=== PATIENT | male | born 2000 | race Caucasian/White ===

== ENCOUNTER 2024-10-19 21:46 | Observation (INO) ==
[2024-10-19] MEDS: ONDANSETRON INJ 2 MG/ML 2 ML VIAL IV STA ×2 (22:13→23:23)
[2024-10-19] MEDS: ACETAMINOPHEN 1,000 MG/100 ML VIAL IV STA (22:13)
[2024-10-19] MEDS: SODIUM CHLORIDE 0.9% 1,000 ML IV ONE ×2 (22:13→23:25)
[2024-10-19] MEDS: KETOROLAC TROMETHAMINE 15 MG/ML VIAL IV STA ×2 (22:13→23:23)
[2024-10-19 22:14] LABS: Basophils # (auto) 0.03 K/uL (0.00-0.20); Basophils % (auto) 0.4 %; Eosinophils # (auto) 0.08 K/uL (0.00-0.50); Eosinophils % (auto) 1.1 %; Hematocrit (blood only) 44.6 % (42.0-52.0); Hemoglobin 15.7 g/dl (14.0-18.0); Immature Granulocytes # (auto) 0.02 K/uL (0.01-0.20); Immature Granulocytes % (auto) 0.3 %; Lymphocytes # (auto) 1.64 K/uL (1.20-3.40); Mean Corpuscular Hgb Conc 35.2 g/dL (32.0-36.0); Mean Corpuscular Volume 85.3 fL (80.0-100.0); Mean Platelet Volume 10.3 fL (9.4-12.4); Monocytes # (auto) 0.65 K/uL (0.11-0.59); Monocytes % (auto) 8.7 %; Neutrophils # (auto) 5.03 K/uL (1.40-6.50); Neutrophils % (auto) 67.5 %; Platelet Count 265 K/uL (130-400); RDW Coefficient of Variation 12.7 % (11.5-14.5); RDW Standard Deviation 39.7 fL (36.4-46.3); Red Blood Count 5.23 M/uL (4.70-6.10); White Blood Count 7.45 K/ul (4.8-10.8)
[2024-10-19 22:32] LABS: Albumin Globulin Ratio 2.1 (0.9-2); Albumin Level 5.3 gm/dl (3.4-5.0); BUN Creatinine Ratio 11.6 (10-20); Bilirubin,Total 0.5 mg/dl (0.2-1.0); Calcium 10.3 mg/dl (8.6-10.3); Creatinine Clr Calc Pharmacy 95.7 ml/min; Globulin 2.5 gm/dl (2.5-4.0); Potassium 3.4 mmol/L (3.5-5.1); Total Protein 7.8 gm/dl (6.0-8.3)
[2024-10-19] MEDS: MoRPHine SULFATE 4 MG/ML 1 ML CARP\\VIAL IV STA (22:36)
[2024-10-19] MEDS: OPTIRAY 320 100ml IV ONE (22:47)
--- NOTE | 2024-10-19 23:22 | Emergency Department Note ---
Impression & Plan Ureterolithiasis, Hydronephrosis due to obstruction of ureter, Acute right flank pain ED Provider Note NAME: GIOVANNY MONTIEL AGE: 24 SEX: M : 2000 ARRIVES VIA: Ambulance INFORMANT: Patient ED PROVIDER(S): Zan Collado MD CHIEF COMPLAINT: Right flank pain, kidney stone. PLAN: Disposition: Admit MEDICAL DECISION MAKING: The patient is a pleasant 24-year-old gentleman who presents to the emergency department for evaluation of worsening right flank pain in setting of being seen in this emergency department 10/17 and 10/18 where he was ultimately diagnosed with a obstructing right ureteral stone. Patient CT demonstrated a 4 mm right proximal renal calculus with associated hydronephrosis. Urine without evidence of infection. Patient reports increasing severe pain with associated nausea. He denies fevers, cough congestion, chest pain or shortness of breath. On evaluation the patient is uncomfortable but no acute distress, afebrile stable vital signs. He appears clinically dry. He has mild right flank and right lower abdominal discomfort without discrete tenderness. WBC, H/H and platelets within normal limits. Chemistry without metabolic acidosis. LFTs unremarkable. Lipase is normal. UA without evidence of infection. CT of the abdomen pelvis was performed and demonstrates migration of patient's previous renal stone now at the UVJ with associated hydronephrosis. Patient was treated with IV fluid ration, IV APAP, Toradol as well as IV morphine with repeat dosing and additional IV Dilaudid due to intractable pain. Given the persistence of the patient's symptoms he does agree with plan for admission for further management. Case was discussed with [facility] Arcos hospitalist, who will evaluate the patient for admission. Triage Nursing notes reviewed and agree them. Prior/external medical records reviewed Vital Signs: reviewed Differential diagnosis: Renal colic, UTI, appendicitis, diverticulitis, mesenteric ischemia, aortic pathology, infections, inflammatory bowel disease, PUD, biliary pathology, as well as other pathologies. ER treatment provided: See below. Diagnostics interpreted by me: Cardiac Monitoring: An order for continuous cardiac monitoring was placed and demonstrated normal sinus rhythm, 89 bpm, no ectopy. Laboratory studies: See below Imaging studies: See below Consultation(s): [facility] Arcos hospitalist. HPI: Per MDM. ROS: See above HPI for pertinent positives & negatives. A total of 10 systems reviewed and were otherwise negative. VITALS:See Below PHYSICAL EXAMINATION: GENERAL: Awake, alert, uncomfortable-appearing, in no distress HENT: Normocephalic, atraumatic. Oropharynx with dry mucous membranes and otherwise unremarkable. EYES: Normal conjunctiva. Sclera non-icteric. NECK: Supple. No nuchal rigidity. FROM. No JVD. RESPIRATORY: Clear to auscultation. CARDIAC: Regular rate, normal rhythm. Extremities warm and well perfused. Pulses equal. ABDOMEN: Soft, non-distended. Mild right flank and right lower quadrant discomfort without discrete tenderness to palpation. No rebound or guarding. MUSCULOSKELETAL: Chest examination reveals no tenderness. The back is symmetrical on inspection without obvious abnormality. There is no CVA tenderness to palpation. No joint edema. LOWER EXTREMITIES: Calves are equal size bilaterally and non-tender. No edema. No discoloration. NEURO: Normal sensorium. No sensory or motor deficits noted. SKIN: No rash or jaundice noted. Zan Collado MD Past Med/Surg History Problem List (Updated 10/21/24 @ 01:12 by Zan Collado MD) Acute right flank pain (Acute) Hydronephrosis due to obstruction of ureter (Acute) Ureterolithiasis (Acute) Right ureteral calculus (Acute) Hematuria (Acute) Abdominal pain, acute, right lower quadrant (Acute) Hematuria (Acute) Abdominal pain (Acute) History of tinnitus (Chronic) Environmental and seasonal allergies (Chronic) RBBB (Chronic) Medical History Buckle fracture of radius Marfans syndrome Surgical History No history of previous surgery Family History Grandmother (Paternal) MVP (mitral valve prolapse) Skin cancer Father TBI (traumatic brain injury) Misuse of medication Mother No problems noted. Denies family history of Ovarian cancer Prostate cancer Myocardial infarction Breast cancer Colorectal cancer Social History Smoking Status: Never smoker Second Hand Exposure: No; Do You Dip or Chew Tobacco: No; Hx Alcohol Use: No Hx Substance Use: No Preferred Language: Maldivian Communication Ability: Effective Visual Impairment: No Limitations Hearing Ability: Normal Grocery Associate Required: No Beliefs That Will Affect Care: None marital status: single Current Living Situation: Parent and Family Current Living Situation Comment: mom and 2 brothers and 1 sister current occupational status: employed current occupation: [employer] How many Children do You have: 0 Feels Safe at Home: Yes Childhood Exposure to Second-Hand Smoke: No Diet: regular caffeine: No during the past year weight has: remained stable Dental Care, Regularly: Yes Physical Activity Frequency: Daily Physical Activity Frequency Comment: walks dog, does PT training Seatbelt Use: always Sunscreen Use: Yes Assistive Devices: None Allergies Allergies Allergy/AdvReac Type Severity Reaction Status Date / Time pollen extracts Allergy Mild STUFFY NOSE Verified 10/19/24 22:13 Home Meds Home Medications Medication Instructions Recorded Confirmed loratadine 10 mg tablet (Claritin) 10 mg PO DAILY PRN Nasal Congestion 11/14/18 10/19/24 cyanocobalamin (vitamin B-12) 1,000 mcg PO DAILY 04/06/21 10/19/24 1,000 mcg tablet (Vitamin B-12) Previous Rx's Medication Instructions Recorded ondansetron 4 mg disintegrating 4 mg PO Q8H PRN nausea and 10/18/24 tablet vomiting #10 tabs tamsulosin 0.4 mg capsule (Flomax) 0.4 mg PO DAILY #14 caps 10/20/24 tramadol 50 mg tablet 50 mg PO Q8H PRN pain #5 tabs 10/20/24 Results & Data (ED) Vital Signs Vital Signs - 24 hr 10/19/24 21:55 10/19/24 21:55 10/19/24 21:56 Temperature 36.5 C Temperature Source Oral Pulse Rate 89 93 H Pulse Rate [Right Finger] 89 Pulse Rhythm Regular Pulse Rhythm [Right Finger] Regular Pulse Strength Normal Pulse Strength [Right Finger] Normal Respiratory Rate 21 21 Respiratory Effort / Characteristics Non-Labored Non-Labored Respiratory Depth Normal Normal Respiratory Pattern Regular Regular Blood Pressure 136/88 Blood Pressure [Left Arm] 136/88 Blood Pressure Mean 104 Blood Pressure Mean [Left Arm] 104 Blood Pressure Position Lying Blood Pressure Position [Left Arm] Lying Pulse Oximetry 100 100 Oxygen Delivery Method Room Air Room Air Sepsis Recent Fever Within 48 Hours No Sepsis New/Unexplained Change in Mental Status N/A Sepsis Action Taken by Nursing No Action Required 10/19/24 22:28 Temperature Temperature Source Pulse Rate Pulse Rate [Right Finger] Pulse Rhythm Pulse Rhythm [Right Finger] Pulse Strength Pulse Strength [Right Finger] Respiratory Rate Respiratory Effort / Characteristics Respiratory Depth Respiratory Pattern Blood Pressure Blood Pressure [Left Arm] Blood Pressure Mean Blood Pressure Mean [Left Arm] Blood Pressure Position Blood Pressure Position [Left Arm] Pulse Oximetry 100 Oxygen Delivery Method Room Air Sepsis Recent Fever Within 48 Hours Sepsis New/Unexplained Change in Mental Status Sepsis Action Taken by Nursing Laboratory Data Attestation: I reviewed the patient's lab results. 10/20/24 05:53 10/20/24 05:53 Lab Results 10/19/24 10/20/24 Range/Units 21:58 00:02 WBC 7.45 (4.8-10.8) K/ul RBC 5.23 (4.70-6.10) M/uL Hgb 15.7 (14.0-18.0) g/dl Hct 44.6 (42.0-52.0) % MCV 85.3 (80.0-100.0) fL MCH 30.0 (25.0-34.0) pg MCHC 35.2 (32.0-36.0) g/dL RDW Std Deviation 39.7 (36.4-46.3) fL RDW Coeff of Sharon 12.7 (11.5-14.5) % Plt Count 265 (130-400) K/uL MPV 10.3 (9.4-12.4) fL Immature Gran % (Auto) 0.3 % Neut % (Auto) 67.5 % Lymph % (Auto) 22.0 % Amador % (Auto) 8.7 % Eos % (Auto) 1.1 % Baso % (Auto) 0.4 % Neut # (Auto) 5.03 (1.40-6.50) K/uL Lymph # (Auto) 1.64 (1.20-3.40) K/uL Amador # (Auto) 0.65 H (0.11-0.59) K/uL Eos # (Auto) 0.08 (0.00-0.50) K/uL Baso # (Auto) 0.03 (0.00-0.20) K/uL Immature Gran # (Auto) 0.02 (0.01-0.20) K/uL Sodium 139 (136-145) mmol/L Potassium 3.4 L (3.5-5.1) mmol/L Chloride 104 (98-107) mmol/L Carbon Dioxide 21 (21-32) mmol/L Anion Gap 14 H (3-11) BUN 15 (6-23) mg/dl Creatinine 1.29 (0.6-1.4) mg/dl Est Cr Clr Drug Dosing 95.7 ml/min eGFR 80.40 BUN/Creatinine Ratio 11.6 (10-20) Glucose 98 (70-99(Fasting)) mg/dl Calcium 10.3 (8.6-10.3) mg/dl Total Bilirubin 0.5 (0.2-1.0) mg/dl AST 23 (13-39) U/L ALT 35 (7-52) U/L Alkaline Phosphatase 94 (34-104) U/L Total Protein 7.8 (6.0-8.3) gm/dl Albumin 5.3 H (3.4-5.0) gm/dl Globulin 2.5 (2.5-4.0) gm/dl Albumin/Globulin Ratio 2.1 H (0.9-2) Lipase 22 (11-82) U/L Urine Color Yellow Urine Appearance Clear (Clear) Urine pH 8.5 H (4.5-7.5) Ur Specific [place] 1.023 (1.000-1.030) Urine Protein Negative (Negative) Urine Glucose (UA) Negative (Negative) Urine Ketones 1+ H (Negative) Urine Blood Trace H (Negative) Urine Nitrite Negative (Negative) Urine Bilirubin Negative (Negative) Urine Urobilinogen Negative (Negative) Ur Leukocyte Esterase Negative (Negative) Urine WBC (Auto) 0-5 (0-5) /hpf Urine RBC (Auto) 6-10 H (0-2) /hpf U Hyaline Cast (Auto) 0-2 (0-2) /lpf U Epithel Cells (Auto) 0-2 (0-2) /hpf Urine Bacteria (Auto) None Seen (None Seen) Administered Medications Discontinued Medications Hydromorphone HCl (Hydromorphone Inj 1 Mg/Ml Syringe) 1 mg IV NOW STA Stop: 10/19/24 23:44 Last Admin: 10/19/24 23:58 Dose: 1 mg Documented By: SHMunira Hydromorphone HCl (Hydromorphone Inj 1 Mg/Ml Syringe) 1 mg IV NOW STA Stop: 10/20/24 00:24 Last Admin: 10/20/24 00:29 Dose: 1 mg Documented By: VIRGINIA Sodium Chloride (Nss) 1,000 mls @ 999 mls/hr IV .Q1H1M ONE Stop: 10/19/24 23:01 Last Infusion: 10/19/24 23:18 Dose: Infused Documented By: Admin: 10/19/24 22:13 Dose: 999 mls/hr Documented By: VIRGINIA Acetaminophen (Ofirmev) 1,000 mg in 100 mls @ 400 mls/hr IV NOW STA Stop: 10/19/24 22:15 Last Infusion: 10/19/24 23:18 Dose: Infused Documented By: Admin: 10/19/24 22:13 Dose: 400 mls/hr Documented By: VIRGINIA Sodium Chloride (Nss) 1,000 mls @ 999 mls/hr IV .Q1H1M ONE Stop: 10/20/24 00:16 Last Infusion: 10/20/24 00:48 Dose: Infused Documented By: Admin: 10/19/24 23:25 Dose: 999 mls/hr Documented By: VIRGINIA Lactated Ringer's (Lr) 1,000 mls @ 125 mls/hr IV .Q8H [facility] Stop: 10/20/24 18:35 Last Admin: 10/20/24 03:25 Dose: 125 mls/hr Documented By: SYDNEY Potassium Chloride (K Ethan / Wtr) 10 meq in 100 mls @ 100 mls/hr IV Q1H ABELINO Stop: 10/20/24 04:35 Last Infusion: 10/20/24 08:19 Dose: Infused Documented By: Admin: 10/20/24 04:53 Dose: 100 mls/hr Documented By: Infusion: 10/20/24 04:25 Dose: Infused Documented By: Admin: 10/20/24 03:25 Dose: 100 mls/hr Documented By: SYDNEY Ioversol (Optiray 320 100ml) 100 ml IV ONCE ONE Stop: 10/19/24 22:48 Last Admin: 10/19/24 22:47 Dose: 93 ml Documented By: KELSEY Ketorolac Tromethamine (Ketorolac Tromethamine 15 Mg/Ml Vial) 15 mg IV NOW STA Stop: 10/19/24 22:02 Last Admin: 10/19/24 22:13 Dose: 15 mg Documented By: VIRGINIA Ketorolac Tromethamine (Ketorolac Tromethamine 15 Mg/Ml Vial) 15 mg IV NOW STA Stop: 10/19/24 23:16 Last Admin: 10/19/24 23:23 Dose: 15 mg Documented By: VIRGINIA Ketorolac Tromethamine (Ketorolac Tromethamine 15 Mg/Ml Vial) 15 mg IV NOW STA Stop: 10/20/24 00:24 Last Admin: 10/20/24 00:29 Dose: 15 mg Documented By: VIRGINIA Morphine Sulfate (Morphine Sulfate 4 Mg/Ml 1 Ml Carp\Vial) 4 mg IV NOW STA Stop: 10/19/24 22:32 Last Admin: 10/19/24 22:36 Dose: 4 mg Documented By: VIRGINIA Morphine Sulfate (Morphine Sulfate 10 Mg/Ml Carp/Vial) 8 mg IV NOW STA Stop: 10/19/24 23:16 Last Admin: 10/19/24 23:23 Dose: 8 mg Documented By: VIRGINIA Ondansetron HCl (Ondansetron Inj 2 Mg/Ml 2 Ml Vial) 4 mg IV NOW STA Stop: 10/19/24 22:02 Last Admin: 10/19/24 22:13 Dose: 4 mg Documented By: VIRGINIA Ondansetron HCl (Ondansetron Inj 2 Mg/Ml 2 Ml Vial) 4 mg IV NOW STA Stop: 10/19/24 23:16 Last Admin: 10/19/24 23:23 Dose: 4 mg Documented By: VIRGINIA Tamsulosin HCl (Tamsulosin Hcl 0.4 Mg Cap) 0.4 mg PO DAILY ABELINO Stop: 11/19/24 08:59 Last Admin: 10/20/24 08:20 Dose: 0.4 mg Documented By: DAYNA Imaging Data Radiologist's Impression: Abdomen/Pelvis CT 10/19/24 22:31 Exam(s): CT ABDOMEN + PELVIS With Contrast IV Amt: 93 ml optiray 320 EXAM: CT Abdomen and Pelvis With Intravenous Contrast CLINICAL HISTORY: Reason for exam: right flank pain. TECHNIQUE: Axial computed tomography images of the abdomen and pelvis with intravenous contrast. CTDI is 14.71 mGy and DLP is 703.91 mGy-cm. Automated exposure control was utilized for the study. A dose lowering technique was utilized adhering to the principles of ALARA. CONTRAST: Patient received 93 ml optiray 320 of IV contrast COMPARISON: CT abdomen/pelvis on 10/17/2024 FINDINGS: Lung bases: Unremarkable. No mass. No consolidation. ABDOMEN: Liver: Unremarkable. No mass. Gallbladder and bile ducts: Unremarkable. No calcified stones. No ductal dilation. Pancreas: Unremarkable. No mass. No ductal dilation. Spleen: Unremarkable. No splenomegaly. Adrenals: Unremarkable. No mass. Kidneys and ureters: 5 mm stone in the distal right ureter. Mild right hydroureteronephrosis. Hypoenhancement of the right kidney. Stomach and bowel: Evaluation of the stomach is limited by underdistention. Decompressed descending colon and sigmoid colon limits evaluation. No small bowel obstruction. No mucosal thickening. PELVIS: Appendix: Normal appendix. Bladder: Small hypodensity in the left kidney is too small to definitively characterize. Nodular for cystitis or obstructing ureteral stone on the left. Reproductive: Unremarkable as visualized. ABDOMEN and PELVIS: Intraperitoneal space: Unremarkable. No free air. No significant fluid collection. Bones/joints: No acute fracture. No dislocation. Soft tissues: Unremarkable. Vasculature: Unremarkable. No abdominal aortic aneurysm. Lymph nodes: Unremarkable. No enlarged lymph nodes. IMPRESSION: 5 mm stone in the distal right ureter. Mild right hydroureteronephrosis. Hypoenhancement of the right kidney. Electronically signed by: Marcella Chao M.D. 10/19/24 23:44 PM Discharge Plan Visit Data Chief Complaint: Abdominal Pain Stated Complaint: AB PAIN ED Provider: Zan Collado Discharge Problem: Ureterolithiasis, Hydronephrosis due to obstruction of ureter, Acute right flank pain Patient Disposition: Admitted As Inpatient Condition: Fair Discharge Instructions Interventions: ED Discharge Assessment Last Done: 10/20/24 02:21
[2024-10-19] MEDS: MoRPHine SULFATE 10 MG/ML CARP/VIAL IV STA (23:23)
--- NOTE | 2024-10-19 23:45 | CT Scan Report ---
Exam(s): CT ABDOMEN + PELVIS With Contrast IV Amt: 93 ml optiray 320 EXAM: CT Abdomen and Pelvis With Intravenous Contrast CLINICAL HISTORY: Reason for exam: right flank pain. TECHNIQUE: Axial computed tomography images of the abdomen and pelvis with intravenous contrast. CTDI is 14.71 mGy and DLP is 703.91 mGy-cm. Automated exposure control was utilized for the study. A dose lowering technique was utilized adhering to the principles of ALARA. CONTRAST: Patient received 93 ml optiray 320 of IV contrast COMPARISON: CT abdomen/pelvis on 10/17/2024 FINDINGS: Lung bases: Unremarkable. No mass. No consolidation. ABDOMEN: Liver: Unremarkable. No mass. Gallbladder and bile ducts: Unremarkable. No calcified stones. No ductal dilation. Pancreas: Unremarkable. No mass. No ductal dilation. Spleen: Unremarkable. No splenomegaly. Adrenals: Unremarkable. No mass. Kidneys and ureters: 5 mm stone in the distal right ureter. Mild right hydroureteronephrosis. Hypoenhancement of the right kidney. Stomach and bowel: Evaluation of the stomach is limited by underdistention. Decompressed descending colon and sigmoid colon limits evaluation. No small bowel obstruction. No mucosal thickening. PELVIS: Appendix: Normal appendix. Bladder: Small hypodensity in the left kidney is too small to definitively characterize. Nodular for cystitis or obstructing ureteral stone on the left. Reproductive: Unremarkable as visualized. ABDOMEN and PELVIS: Intraperitoneal space: Unremarkable. No free air. No significant fluid collection. Bones/joints: No acute fracture. No dislocation. Soft tissues: Unremarkable. Vasculature: Unremarkable. No abdominal aortic aneurysm. Lymph nodes: Unremarkable. No enlarged lymph nodes. IMPRESSION: 5 mm stone in the distal right ureter. Mild right hydroureteronephrosis. Hypoenhancement of the right kidney. Electronically signed by: Marcella Chao M.D. 10/19/24 23:44 PM
[2024-10-19] MEDS: HYDROmorphone INJ 1 MG/ML SYRINGE IV STA (23:58)
[2024-10-20 00:23] LABS: Appearance Urine Clear (Clear); Bacteria Urine Automated None Seen (None Seen); Bilirubin Urine Negative (Negative); Blood Urine Trace (Negative); Cast Urine Automated 0-2 /lpf (0-2); Color Urine Yellow; Epithelial Cell Urine Auto 0-2 /hpf (0-2); Glucose Urine UA Negative (Negative); Ketones Urine 1+ (Negative); Leukocyte Esterase Urine Negative (Negative); Nitrite Urine Negative (Negative); Protein Urine Negative (Negative); Specific Gravity Urine 1.023 (1.000-1.030); Urobilinogen Urine Negative (Negative); WBC Urine Automated 0-5 /hpf (0-5); pH Urine 8.5 (4.5-7.5)
[2024-10-20] MEDS: HYDROmorphone INJ 1 MG/ML SYRINGE IV STA (00:29)
[2024-10-20] MEDS: KETOROLAC TROMETHAMINE 15 MG/ML VIAL IV STA (00:29)
--- NOTE | 2024-10-20 01:41 | History & Physical Report ---
Date of Service October 20, 2024 Assessment & Plan (1) Right ureteral calculus: (2) Hematuria: (3) Abdominal pain, acute, right lower quadrant: Plan 24 year old male presenting with right lower quadrant abdominal pain secondary to ureteral stone: #RLQ Abdominal Pain: #Ureterolithiasis // Hematuria // Hydroureteronephrosis: CT A/P notable for 5mm stone in distal right ureter with mild hydroureteronephrosis Minimal impact on kidney function, eGFR largely preserved Continue Flomax LR @125mL/hr x2 bags Tylenol, Dilaudid PRN for pain control Zofran PRN for N/V Appreciate urology assistance, NPO pending evaluation Repeat AM CBC, BMP Dispo: Admit Med-Surg VTE ppx: Low risk, ambulation - chemical VTE ppx deferred Diet: NPO Full Code History of Present Illness Primary Care Provider: ANH Stanton 24 year old male presenting with right lower abdominal pain. Pain started fairly abruptly 10/17/24, patient was seen in ED same day. Ureteral stone was not initially picked up on imaging. 5mm stone noted in later addendum, by which time patient had already been discharged. Patient presented again 10/18 with recurrence of pain, opted to try outpatient management - started on Flomax and given short course of Tramadol for pain control. Patient took first dose of Flomax today, denies associated lightheadedness. Pain suddenly flared up again around 1800 on 10/19, leading patient to seek care again. Also reports associated nausea and vomiting x2. Denies fevers, chills, dysuria, urinary hesitancy/retention. At present, resting comfortably, pain alleviated after Dilaudid. ED course: Repeat CT A/P redemonstrated 5mm right ureteral stone with mild hydroureteronephrosis. UA with trace blood, not suggestive of infection. Labs otherwise unremarkable. Patient mildly tachycardic but VSS otherwise. Allergies Allergy/AdvReac Type Severity Reaction Status Date / Time pollen extracts Allergy Mild STUFFY NOSE Verified 10/19/24 22:13 Home Medications Medication Instructions Recorded Confirmed Type loratadine 10 mg tablet (Claritin) 10 mg PO DAILY PRN Nasal Congestion 11/14/18 10/19/24 History cyanocobalamin (vitamin B-12) 1,000 mcg PO DAILY 04/06/21 10/19/24 History 1,000 mcg tablet (Vitamin B-12) ondansetron 4 mg disintegrating 4 mg PO Q8H PRN nausea and 10/18/24 10/19/24 Rx tablet vomiting #10 tabs tamsulosin 0.4 mg capsule (Flomax) 0.4 mg PO DAILY #14 caps 10/18/24 10/19/24 Rx Past Med/Surg History Problem List Right ureteral calculus (Acute) Hematuria (Acute) Abdominal pain, acute, right lower quadrant (Acute) Hematuria (Acute) Abdominal pain (Acute) History of tinnitus (Chronic) Environmental and seasonal allergies (Chronic) RBBB (Chronic) Medical History Buckle fracture of radius Marfans syndrome Surgical History No history of previous surgery Family History Grandmother (Paternal) MVP (mitral valve prolapse) Skin cancer Father TBI (traumatic brain injury) Misuse of medication Mother No problems noted. Denies family history of Ovarian cancer Prostate cancer Myocardial infarction Breast cancer Colorectal cancer Social History Smoking Status: Never smoker Second Hand Exposure: No; Do You Dip or Chew Tobacco: No; Tobacco Cessation Education Requested by Patient: No Hx Alcohol Use: No Hx Substance Use: No Preferred Language: Azeri Communication Ability: Effective Visual Impairment: No Limitations Hearing Ability: Normal Heel Gummer Required: No Beliefs That Will Affect Care: None marital status: single Current Living Situation: Parent and Family Current Living Situation Comment: mom and 2 brothers and 1 sister current occupational status: employed current occupation: [employer] yard How many Children do You have: 0 Other Information That Helps Us Care for You: No Feels Safe at Home: Yes Safety Concerns: Feels Safe At This Time Childhood Exposure to Second-Hand Smoke: No Diet: regular caffeine: No during the past year weight has: remained stable Dental Care, Regularly: Yes Physical Activity Frequency: Daily Physical Activity Frequency Comment: walks dog, does PT training Seatbelt Use: always Sunscreen Use: Yes Assistive Devices: None Review of Systems Review of Systems: as per HPI Physical Exam Physical Exam: Constitutional: no acute distress HEENT: NCAT, no conjunctival injection CV: RRR, extremities well-perfused, no LE edema Resp: no increased work of breathing GI: soft, nondistended, normal bowel sounds, abdomen mildly tender to palpation in RLQ and suprapubic regions. No rigidity, guarding, or rebound tenderness appreciated. Negative CVA tenderness bilaterally. MSK: no gross deformities Skin: warm, dry, no rash appreciated Neuro: alert, oriented, no focal neurologic deficit appreciated Results & Data Results & Data Vital Signs (Past 12 Hours) Vital Signs Temp Pulse Pulse Resp BP BP Pulse Ox 10/20/24 00:11 82 16 155/107 H 100 10/19/24 22:28 100 10/19/24 21:56 93 H 10/19/24 21:55 89 21 136/88 100 10/19/24 21:55 36.5 C 89 21 136/88 100 O2 Del Method 10/20/24 00:11 Room Air 10/19/24 22:28 Room Air 10/19/24 21:56 10/19/24 21:55 Room Air 10/19/24 21:55 Room Air Supervising Physician Co-Signing Physician Notes I personally saw and examined the patient. I independently reviewed the labs, EKG, imaging, problem list, medication list, past medical history and family history. I verified all khoury points and agree with resident physician Dr Triston Cole DO with the following exceptions and/or additions: 24 year old male presents to the ER with intractable right flank/abdominal pain with known kidney stone O/E HS RRR, no murmurs, Chest CTAB, Abdo right sided tenderness without guarding or rebound tenderness, CVA tenderness A/P Ureterolithiasis - urine strainer, stone analysis if passes stone, Add IV Toradol to pain regimen. consult urology Resident Activity Tracking Resident Involvement: Resident Care Provided Care Provided: Adult [facility] Medicine
[2024-10-20] MEDS ORDERED: HYDROmorphone INJ 0.5 MG/0.5 ML SYR IV PRN (02:36)
[2024-10-20] MEDS ORDERED: ONDANSETRON INJ 2 MG/ML 2 ML VIAL IV PRN (02:36)
[2024-10-20] MEDS ORDERED: HYDROmorphone INJ 1 MG/ML SYRINGE IV PRN (02:36)
[2024-10-20] MEDS ORDERED: ACETAMINOPHEN 1,000 MG/100 ML VIAL IV PRN (02:36)
[2024-10-20] MEDS: LACTATED RINGER'S 1,000 ML IV SCH (03:25)
[2024-10-20] MEDS: POTASSIUM CHLORIDE / WTR 10 MEQ/100 ML PLCT IV SCH (03:25)
[2024-10-20 06:09] LABS: Hematocrit (blood only) 38.6 % (42.0-52.0); Hemoglobin 13.2 g/dl (14.0-18.0); Mean Corpuscular Hemoglobin 29.8 pg (25.0-34.0); Mean Corpuscular Hgb Conc 34.2 g/dL (32.0-36.0); Mean Corpuscular Volume 87.1 fL (80.0-100.0); Mean Platelet Volume 9.8 fL (9.4-12.4); Platelet Count 192 K/uL (130-400); RDW Standard Deviation 40.8 fL (36.4-46.3); Red Blood Count 4.43 M/uL (4.70-6.10); White Blood Count 7.84 K/ul (4.8-10.8)
[2024-10-20] MEDS ORDERED: KETOROLAC TROMETHAMINE 15 MG/ML VIAL IV PRN (06:25)
[2024-10-20 06:54] LABS: BUN Creatinine Ratio 12.2 (10-20); Calcium 8.7 mg/dl (8.6-10.3); Creatinine Clr Calc Pharmacy 128.7 ml/min; Potassium 4.1 mmol/L (3.5-5.1)
--- NOTE | 2024-10-20 07:22 | Billing Data ---
Date of Service October 20, 2024 Coding Level of Care Code 37071 INT INP/OBS CARE
--- NOTE | 2024-10-20 07:55 | Urology Consultation ---
Date of Consultation October 20, 2024 Assessment & Plan (1) Right ureteral calculus: 24-year-old male admitted for acute right flank pain secondary to an obstructing right ureteral stone. Patient is currently afebrile and hemodynamically stable Labs reviewedcreatinine 0.9, no leukocytosis CT imaging reviewed- 5 mm right ureteral calculus is now in the distal ureter Urinalysis was not suspicious for infection Pain is controlled at present with current regimen We discussed options for stone management including trial of passage versus surgical intervention inpatient Discussed outpatient procedures if pain is controlled He prefers trial of passage today Recommend hydration, Tamsulosin, pain management, and strain all urine Make NPO at MD to reassess for surgical intervention tomorrow will follow, please contact our service with any questions or changes in clinical status History of Present Illness Attending Physician: Billy Mayer MD History of Present Illness This is a 24-year-old male who was admitted on 10/19/2024 for worsening right lower quadrant abdominal pain secondary to a 5 mm ureteral stone. Pain started abruptly on 10/17/2024 and patient was evaluated in the ED. Ureteral stone was not initially documented on imaging. Patient returned to ED on 10/18 with recurrence of pain and opted to try outpatient stone management with Flomax and analgesics. He returned to ED on 10/19 with recurrence of pain, nausea and vomiting. CT abdomen pelvis on 10/19 notable for a 5 mm distal right ureteral stone with mild hydroureteronephrosis. Prior CT imaging on 10/17 reviewed and showed a 5 mm proximal ureteral stone with mild hydronephrosis. Urology is consulted for ureterolithiasis. UA on arrival showed trace blood, 6-10 RBC. Labs today showedcreatinine 0.0, WBC 7.84, hemoglobin 13.2 Patient seen and examined at bedside. Pain is currently improved. Denies nausea, vomiting, fever or chills. He is voiding spontaneously. Denies stone passage. No dysuria or hematuria present. He is NPO. Straining urine. No prior stone history. Allergies Allergy/AdvReac Type Severity Reaction Status Date / Time pollen extracts Allergy Mild STUFFY NOSE Verified 10/19/24 22:13 Home Medications Medication Instructions Recorded Confirmed Type loratadine 10 mg tablet (Claritin) 10 mg PO DAILY PRN Nasal Congestion 11/14/18 10/19/24 History cyanocobalamin (vitamin B-12) 1,000 mcg PO DAILY 04/06/21 10/19/24 History 1,000 mcg tablet (Vitamin B-12) ondansetron 4 mg disintegrating 4 mg PO Q8H PRN nausea and 10/18/24 10/19/24 Rx tablet vomiting #10 tabs tamsulosin 0.4 mg capsule (Flomax) 0.4 mg PO DAILY #14 caps 10/18/24 10/19/24 Rx Patient History Medical History Buckle fracture of radius Marfans syndrome Surgical History No history of previous surgery Family History Grandmother (Paternal) MVP (mitral valve prolapse) Skin cancer Father TBI (traumatic brain injury) Misuse of medication Mother No problems noted. 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 Beliefs That Will Affect Care: None marital status: single Current Living Situation: Parent and Family Current Living Situation Comment: mom and 2 brothers and 1 sister current occupational status: employed current occupation: [employer] How many Children do You have: 0 Other Information That Helps Us Care for You: No Feels Safe at Home: Yes Safety Concerns: Feels Safe At This Time Childhood Exposure to Second-Hand Smoke: No Diet: regular caffeine: No during the past year weight has: remained stable Dental Care, Regularly: Yes Physical Activity Frequency: Daily Physical Activity Frequency Comment: walks dog, does PT training Seatbelt Use: always Sunscreen Use: Yes Assistive Devices: None Review of Systems Review of Systems: All systems reviewed & are unremarkable except as noted in HPI & below Physical Exam Constitutional: well developed and well nourished; no acute distress Respiratory: normal respiratory effort; no respiratory distress and no labored breathing Gastrointestinal (Abdomen): Inspection/Auscultation: abdomen normal to inspection Musculoskeletal: Head/Neck/Chest: normocephalic Neurologic: moves all extremities and awake Psychiatric: Orientation: alert and oriented x 3 Results & Data Vital Signs (Past 12 Hours) Vital Signs Temp Pulse Pulse Resp BP BP Pulse Ox 10/20/24 07:07 36.9 C 74 17 116/70 97 10/20/24 03:00 36.8 C 106 H 16 152/88 H 96 10/20/24 02:36 36.8 C 106 H 17 152/88 H 96 10/20/24 01:46 86 L 10/20/24 00:11 82 16 155/107 H 100 10/19/24 22:28 100 10/19/24 21:56 93 H 10/19/24 21:55 89 21 136/88 100 10/19/24 21:55 36.5 C 89 21 136/88 100 O2 Del Method O2 Flow Rate 10/20/24 07:07 Room Air 10/20/24 03:00 Room Air 10/20/24 02:36 Room Air 10/20/24 01:46 Room Air, Nasal Cannula 0 10/20/24 00:11 Room Air 10/19/24 22:28 Room Air 10/19/24 21:56 10/19/24 21:55 Room Air 10/19/24 21:55 Room Air PG Care Time/CCT Total # of Minutes Spent Total Time Spent with Patient: Total time spent is greater than 50% in coordination of care (as documented) at patient's floor/unit and/or counseling patient: Coding Level of Care Code 70645 IN/OBS CONSULT LVL 4,60M Diagnoses Right ureteral calculus N20.1
[2024-10-20] MEDS: TAMSULOSIN HCL 0.4 MG CAP PO SCH (08:20)
--- NOTE | 2024-10-20 13:39 | Hospitalist Progress Note ---
Date of Service October 20, 2024 Assessment & Plan (1) Right ureteral calculus: (2) Hematuria: (3) Abdominal pain, acute, right lower quadrant: Plan 24 year old male presenting with right lower quadrant abdominal pain secondary to ureteral stone: #RLQ Abdominal Pain: #Ureterolithiasis // Hematuria // Hydroureteronephrosis: CT A/P notable for 5mm stone in distal right ureter with mild hydroureteronephrosis. UA without signs of infection Continue Flomax LR @125mL/hr x2 bags Tylenol, Dilaudid PRN for pain control urology consultedpatient opted for trial of passage of stone today, n.p.o. at midnight if stone does not pass for surgical intervention Dispo: continue inpatient stay until stone passes Admission and Anticipated Discharge Date Admission Date: October 20, 2024 Subjective Patient seen earlier this morning, lying in bed. Denies having pain at the moment but does report twinges that come and go in the right lower quadrant. Urinating without issue. Has not seen any stones in his urine, has been draining all his urine. No history of kidney stones. Tolerating diet without a problem Review of Systems Review of Systems: All systems reviewed & are unremarkable except as noted in Subjective Physical Exam Physical Exam: General: NAD, VS as above HEENT: Mucous membranes moist, trachea midline, no scleral icterus Resp: normal respiratory effort, lungs clear to auscultation CV: RRR, no murmur, Abd: normal bowel sounds, mild right lower quadrant tender Extremities: Moves all extremities, no edema Neuro: A&O x3, Skin: intact, no lesions noted Results & Data Results & Data Vital Signs (Past 12 Hours) Vital Signs Temp Pulse Resp BP Pulse Ox O2 Del Method O2 Flow Rate 10/20/24 07:07 98.4 F 74 17 116/70 97 Room Air 10/20/24 03:00 98.2 F 106 H 16 152/88 H 96 Room Air 10/20/24 02:36 98.2 F 106 H 17 152/88 H 96 Room Air 10/20/24 01:46 86 L Room Air, Nasal Cannula 0 Laboratory Results CBC and chemistry reviewed PG Care Time/CCT Total # of Minutes Spent Total Time Spent with Patient: Total time spent is greater than 50% in coordination of care (as documented) at patient's floor/unit and/or counseling patient: Coding Level of Care Code None Diagnoses Right ureteral calculus N20.1 Hematuria R31.9 Abdominal pain, acute, right lower quadrant R10.31
[2024-10-20 15:06] VITALS: PULSE 78; RESP 18; TEMP 97.3; O2SAT 99
--- NOTE | 2024-10-20 16:00 | XRay Report ---
KUB HISTORY: recheck stone placement COMPARISON STUDY: CT scan yesterday FINDINGS: Small distal right ureteral calculus is stable. There is moderate retained stool. No bowel obstruction seen. IMPRESSION: Stable distal right ureteral calculus. ACT 112: Negative or not required by law. The above report was generated using voice recognition software. It may contain grammatical, syntax o r spelling errors. Electronically signed by: Wale Lopez M.D. 10/20/2024 3:59 PM
--- NOTE | 2024-10-20 16:38 | Discharge Summary ---
Discharge Summary Date of Service October 20, 2024 Principal Dx & Hospital Course #1 = Principal Diagnosis (1) Right ureteral calculus: (2) Hematuria: (3) Abdominal pain, acute, right lower quadrant: Plan 24 year old male presenting with right lower quadrant abdominal pain secondary to ureteral stone: #RLQ Abdominal Pain: #Ureterolithiasis // Hematuria // Hydroureteronephrosis: CT A/P notable for 5mm stone in distal right ureter with mild hydroureteronephrosis. UA without signs of infection Continue Flomax LR @125mL/hr x2 bags urology consultedpatient opted for trial of passage of stone Patient remained pain free and asking about outpatient management. KUB checked and stone is in the same place. Discussed with urology okay to d/c home with pain control and flomax and they will arranage outpatient follow up. Patient agreeable to this plan. Dispo: discharge to home with tramadol and flomax Admission HPI Per Admitting Provider 24 year old male presenting with right lower abdominal pain. Pain started fairly abruptly 10/17/24, patient was seen in ED same day. Ureteral stone was not initially picked up on imaging. 5mm stone noted in later addendum, by which time patient had already been discharged. Patient presented again 10/18 with recurrence of pain, opted to try outpatient management - started on Flomax and given short course of Tramadol for pain control. Patient took first dose of Flomax today, denies associated lightheadedness. Pain suddenly flared up again around 1800 on 10/19, leading patient to seek care again. Also reports associated nausea and vomiting x2. Denies fevers, chills, dysuria, urinary hesitancy/retention. At present, resting comfortably, pain alleviated after Dilaudid. ED course: Repeat CT A/P redemonstrated 5mm right ureteral stone with mild hydroureteronephrosis. UA with trace blood, not suggestive of infection. Labs otherwise unremarkable. Patient mildly tachycardic but VSS otherwise. Discharge Exam General: NAD, VS as above HEENT: Mucous membranes moist, trachea midline, no scleral icterus Resp: normal respiratory effort, lungs clear to auscultation CV: RRR, no murmur, Abd: normal bowel sounds, mild right lower quadrant tender Extremities: Moves all extremities, no edema Neuro: A&O x3, Skin: intact, no lesions noted Discharge Plan Discharge Items Patient Disposition: Home - Self-Care Reason For Visit: URETEROLITHIASIS Discharge Diagnosis: kidney stone Activity: Resume your previous activity Weightbearing: Full weightbearing Non-emergency contact: Primary Care Provider and Urologist Call non-emergency contact if: you have any medication questions, your pain is not controlled and your temperature is above 101 Follow-up/Referrals: Rajendra Askew, ANH [Primary Care Provider] - Kandace Mccoy CRNP [Nurse Practitioner] - (follow up for stone treatment ) Diet: Regular Addtl Attending Provider Instructions: Mr. Panda You were hospitalized after having abdominal pain found to be from kidney stones. You were seen by the urologist and opted for conservative management. It is important that you stay hydrated in best attempts to pass the kidney stone. Medication Changes/Recommendations: * Continue flomax daily until stone is passed - this is to help with easier passage of urine * Pain control - can use tylenol and ibuprofen over the counter, for severe pain I have sent in some toradol If you are having persistent dark bloody urine or thick bloody urine for >8 hours please contact your urologist. The urology office should be contacting you to schedule and appointment. If you do not hear from them by to arrange stone treatment, please contact them at [phone] Please contact the urologist if you have any uncontrolled pain, fevers > 100F, or inability to urinate. Pending Studies at Discharge: No Stand-Alone Forms: [facility] [place] [place] Medications and DC Order Prescriptions: New tramadol 50 mg tablet 50 mg PO Q8H PRN (Reason: pain) Qty: 5 0RF Rx Instructions: breakthrough pain Continued loratadine [Claritin] 10 mg Tablet 10 mg PO DAILY PRN (Reason: Nasal Congestion) cyanocobalamin (vitamin B-12) [Vitamin B-12] 1,000 mcg Tablet 1,000 mcg PO DAILY ondansetron 4 mg tablet,disintegrating 4 mg PO Q8H PRN (Reason: nausea and vomiting) Qty: 10 0RF tamsulosin [Flomax] 0.4 mg capsule 0.4 mg PO DAILY Qty: 14 0RF Discharge Orders: Discharge Order (Routine); Ordered 10/20/24 Ordered By: Jennifer Vargas/Other Patient Handouts: Kidney Stones Expectant Tx, ED Urine Strainer Admission Data Admit Date/Time: 10/20/24 01:41 Attending Provider: Billy Mayer Admit Provider: Triston Cole Primary Care Provider: Rajendra Askew Other Providers: Socrates Estrada; Aureliano Bunch; Hermelinda Cabrera; Jorge Patel; Kandace Mccoy; Michael Ceballos; Mariah Polanco; Biju Steel; Vaibhav Anaya Hospital Stay Data Consultations 10/20/24 00:57 ED Decision to Admit Stat 10/20/24 02:36 Consult Urology Routine Diagnostic Imagining Performed Abdomen/Pelvis CT 10/19/24 22:31 Exam(s): CT ABDOMEN + PELVIS With Contrast IV Amt: 93 ml optiray 320 EXAM: CT Abdomen and Pelvis With Intravenous Contrast CLINICAL HISTORY: Reason for exam: right flank pain. TECHNIQUE: Axial computed tomography images of the abdomen and pelvis with intravenous contrast. CTDI is 14.71 mGy and DLP is 703.91 mGy-cm. Automated exposure control was utilized for the study. A dose lowering technique was utilized adhering to the principles of ALARA. CONTRAST: Patient received 93 ml optiray 320 of IV contrast COMPARISON: CT abdomen/pelvis on 10/17/2024 FINDINGS: Lung bases: Unremarkable. No mass. No consolidation. ABDOMEN: Liver: Unremarkable. No mass. Gallbladder and bile ducts: Unremarkable. No calcified stones. No ductal dilation. Pancreas: Unremarkable. No mass. No ductal dilation. Spleen: Unremarkable. No splenomegaly. Adrenals: Unremarkable. No mass. Kidneys and ureters: 5 mm stone in the distal right ureter. Mild right hydroureteronephrosis. Hypoenhancement of the right kidney. Stomach and bowel: Evaluation of the stomach is limited by underdistention. Decompressed descending colon and sigmoid colon limits evaluation. No small bowel obstruction. No mucosal thickening. PELVIS: Appendix: Normal appendix. Bladder: Small hypodensity in the left kidney is too small to definitively characterize. Nodular for cystitis or obstructing ureteral stone on the left. Reproductive: Unremarkable as visualized. ABDOMEN and PELVIS: Intraperitoneal space: Unremarkable. No free air. No significant fluid collection. Bones/joints: No acute fracture. No dislocation. Soft tissues: Unremarkable. Vasculature: Unremarkable. No abdominal aortic aneurysm. Lymph nodes: Unremarkable. No enlarged lymph nodes. IMPRESSION: 5 mm stone in the distal right ureter. Mild right hydroureteronephrosis. Hypoenhancement of the right kidney. Electronically signed by: Marcella Chao M.D. 10/19/24 23:44 PM KUB X-Ray 10/20/24 15:26 KUB HISTORY: recheck stone placement COMPARISON STUDY: CT scan yesterday FINDINGS: Small distal right ureteral calculus is stable. There is moderate retained stool. No bowel obstruction seen. IMPRESSION: Stable distal right ureteral calculus. ACT 112: Negative or not required by law. The above report was generated using voice recognition software. It may contain grammatical, syntax or spelling errors. Electronically signed by: Wale Lopez M.D. 10/20/2024 3:59 PM Pending Results Patient Have Any Pending Studies at Discharge: No Discharge Instructions Given to Patient (Per Discharging Provider) Mr. Panda You were hospitalized after having abdominal pain found to be from kidney stones. You were seen by the urologist and opted for conservative management. It is important that you stay hydrated in best attempts to pass the kidney stone. Medication Changes/Recommendations: * Continue flomax daily until stone is passed - this is to help with easier passage of urine * Pain control - can use tylenol and ibuprofen over the counter, for severe pain I have sent in some toradol If you are having persistent dark bloody urine or thick bloody urine for >8 hours please contact your urologist. The urology office should be contacting you to schedule and appointment. If you do not hear from them by to arrange stone treatment, please contact them at [phone] Please contact the urologist if you have any uncontrolled pain, fevers > 100F, or inability to urinate. Total Time Total Time Spent Total Time Spent (In Minutes): Time spent day of discharge 40 minutes including direct patient care, medication reconciliation, documentation, review of labs and images, and coordination of care. Coding Level of Care Code None Diagnoses Right ureteral calculus N20.1 Hematuria R31.9 Abdominal pain, acute, right lower quadrant R10.31
[2024-10-20 17:09] VITALS: BP 116/70
== END 2024-10-20 17:45 | disposition home or self-care (01) | DRG 694 ==
LOC: ED 21:46 → 4W 10-20 01:41 → SUATTDRO 10-20 01:41 → INTOOBSV 10-20 01:41 → 4W 10-20 02:21